=== PATIENT | male | born 1985 | race Caucasian/White ===

== ENCOUNTER 2016-05-13 13:48 | Emergency (ER) | payer OTHER ==
[2016-05-13] MEDS ORDERED: CLINDAMYCIN 600 MG/4 ML VIAL ONE (15:16)
== END 2016-05-13 15:30 | disposition home or self-care (01) ==
LOC: ER 13:48
DX: L03.115 Cellulitis of right lower limb (principal); L02.415 Cutaneous abscess of right lower limb; F17.210 Nicotine dependence, cigarettes, uncomplicated
CPT/HCPCS: 96372